=== PATIENT | male | born 2000 | race Asian ===

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

== ENCOUNTER 2018-01-12 20:48 | Emergency (ER) | payer OTHER ==
[2018-01-12 21:27] VITALS: TEMP 98.4
--- NOTE | 2018-01-12 21:40 | EDPHY ---
H & P Stated Complaint: cough fever sore throat since wednesday Time Seen by Provider: 01/12/18 21:30 HPI/ROS: CHIEF COMPLAINT: URI symptoms x4 days HISTORY OF PRESENT ILLNESS: 17-year-old immunocompetent male complaining of 4 days of nasal congestion, sore throat, nonproductive cough, myalgias. Influenza vaccination is up-to-date. No change in voice. No chest pain. No abdominal pain. No nausea or vomiting. No fever or chills. REVIEW OF SYSTEMS: A ten point review of systems was performed and is negative with the exception of the items mentioned in the HPI PAST MEDICAL & SURGICAL HISTORY: No pertinent medical or surgical history SOCIAL HISTORY: Nonsmoker PHYSICAL EXAM (Prior to examination, patient consented to physical exam, hands were washed and my usual and customary physical exam procedures followed) 1) GENERAL: Well-developed, well-nourished, alert and oriented. Appears to be in no acute distress. 2) HEAD: Normocephalic, atraumatic 3) HEENT: Pupils equal, round, reactive to light bilaterally. Sclera anicteric. Nasopharynx, oropharynx, clear, no lesions. No tonsillar enlargement or exudate. No hot potato voice. Ears bilaterally with normal tympanic membranes. 4) NECK: Full range of motion, no meningeal signs. 5) LUNGS: Clear auscultation bilaterally, no wheezes, no rhonchi, no retractions. 6) HEART: Regular rate and rhythm, no murmur, no heave, no gallop. 7) ABDOMEN: No guarding, no rebound, no focal tenderness, negative McBurney's, negative Miller's, negative Rovsing's, negative peritoneal sign, 8) MUSCULOSKELETAL: Moving all extremities, no focal areas of tenderness, no obvious trauma. No peripheral edema or discoloration. 9) BACK: No CVA tenderness, no midline vertebral tenderness, no fluctuance, no step-off, no obvious trauma, no visual or palpable abnormality. 10) SKIN: No rash, no petechiae. 11) Psychiatric: Patient is oriented X 3, there is no agitation. DIFFERENTIAL DIAGNOSIS: In no particular order including but limited to influenza, meningitis, bronchitis - Personal History Current Tetanus/Diphtheria Vaccine: Unsure Current Tetanus Diphtheria and Acellular Pertussis (TDAP): Unsure - Medical/Surgical History Hx Asthma: No Hx Chronic Respiratory Disease: No Hx Diabetes: No Hx Cardiac Disease: No Hx Renal Disease: No Hx Cirrhosis: No Hx Alcoholism: No Hx HIV/AIDS: No Hx Splenectomy or Spleen Trauma: No Other PMH: eczema - Social History Smoking Status: Never smoked Constitutional: Initial Vital Signs Temperature (C) 36.9 C 01/12/18 21:22 Heart Rate 94 01/12/18 21:22 Respiratory Rate 16 01/12/18 21:22 Blood Pressure 126/80 H 01/12/18 21:22 O2 Sat (%) 95 01/12/18 21:22 O2 Delivery Mode Room Air Allergies/Adverse Reactions: No Known Allergies Allergy (Verified 10/11/17 16:44) Home Medications: Medication Instructions Recorded Hydrocortisone [Cortisone] 1 florence TP BID #30 cream..g. 10/11/17 Albuterol [Proventil Inhaler HFA 1 - 2 puffs IH Q4PRN PRN #1 mdi 01/12/18 (*)] Benzonatate [Tessalon Pearles (RX)] 200 mg PO TID PRN #15 cap 01/12/18 Medical Decision Making ED Course/Re-evaluation: Patient's symptoms are more than likely secondary to viral etiology. For these reasons, I do not feel antibiotics are currently indicated. In addition, I do not identify indication for chest x-ray as the patient's lungs are clear bilaterally, has a normal pulse ox, speaking full sentences, no signs of respiratory distress. Patient has been informed that influenza not ruled out. However given his symptoms have been occurring for 4 days, he is low risk for complications, I do not think that testing is currently indicated. The patient understands that this diagnosis is provisional and can never be 100% accurate. Usual and customary warnings were given concerning the clinical impression and all the patient's questions were answered. The patient was instructed to return to the emergency department should her symptoms worsen or return, or develop any new symptoms, otherwise to followup as directed in discharge instructions. Care of patient under supervision of secondary supervising physician Dr Strange. Departure - Departure Disposition: Home, Routine, Self-Care Clinical Impression: Upper respiratory infection Qualifiers: URI type: unspecified URI Qualified Code(s): J06.9 - Acute upper respiratory infection, unspecified Condition: Good Instructions: Upper Respiratory Infection (ED) Additional Instructions: Return to the emergency department immediately for change in breathing habits, change in voice, change in swallowing habits, change in mental status, or any other symptoms that concern you. Adult Pain & Fever Control: We recommend Acetaminophen (Tylenol) and Ibuprofen (Motrin,Advil) for pain and fever control. When fever is high or pain severe, both drugs can be used at the same time, but at different intervals. Please note the time differences. Your dose is: Acetaminophen 650mg every 4 to 6 hours Ibuprofen 600mg every 6 hours with food OR Note: do not take Acetaminophen with Hydrocodone (Vicodin, Lortab) or Oycodone (Percocet). These medications also contain Acetaminophen. No more than 3000mg of Acetaminophen should be taken in 24 hours (for an adult). Referrals: [facility],. [Clinic] - 1-2 days without fail Stand Alone Forms: School Excuse Prescriptions: Albuterol [Proventil Inhaler HFA (*)] 1 - 2 puffs IH Q4PRN PRN #1 mdi PRN Reason: Cough, Moderate Benzonatate [Tessalon Pearles (RX)] 200 mg PO TID PRN #15 cap PRN Reason: Cough, Moderate
[2018-01-12 21:50] VITALS: BP 117/72; PULSE 68; RESP 18; O2SAT 96
== END 2018-01-12 21:49 | disposition home or self-care (01) ==
DX: J06.9 Acute upper respiratory infection, unspecified (principal)

== ENCOUNTER 2018-08-25 22:02 | Emergency (ER) | payer OTHER ==
[2018-08-25] MEDS ORDERED: ONDANSETRON DISINTEGRATING 4 MG TAB PO ONE (22:20)
[2018-08-25] MEDS ORDERED: IBUPROFEN 200 MG TAB PO ONE (22:20)
--- NOTE | 2018-08-25 22:28 | EDPHY ---
H & P Stated Complaint: Dizzy & nauseous Time Seen by Provider: 08/25/18 22:11 HPI/ROS: HPI The patient presents with headache and dizziness which have been present for the last 1 hr. He says he did not sleep much at all last night and was up for most of the night. He took a nap and then awoke at about 7:00 p.m. He felt groggy and tired when he awoke. He noticed when he stood up he felt lightheaded. He then sat back down and developed an occipital throbbing headache which he thought was related to hunger. He drink some water and ate a banana, however continued to feel the headache. The headache came on slowly and he has had headaches like this before related to hunger. He notices now that he is still lightheaded when he changes position. He does not have any weakness in his arms or legs. He does not have any vomiting though feels mild nausea. REVIEW OF SYSTEMS 10 systems were reviewed and negative with the exception of the elements mentioned in the history of present illness. 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 [facility] FHx: Father with diabetes PHYSICAL General Appearance: Alert, no distress Eyes: Pupils equal and round no pallor or injection ENT, Mouth: Mucous membranes moist Respiratory: There are no retractions, lungs are clear to auscultation Cardiovascular: Regular rate and rhythm , no murmur Gastrointestinal: Abdomen is soft and non-tender, no masses, bowel sounds normal Neurological: A&O, cranial nerves 2-12 intact, 5/5 strength in upper and lower extremities which is symmetric Skin: Warm and dry, no rashes Musculoskeletal: Neck is supple non tender Extremities: symmetrical, full range of motion Psychiatric: Patient is oriented X 3, there is no agitation Source: Patient Exam Limitations: No limitations - Personal History Current Tetanus/Diphtheria Vaccine: Yes Current Tetanus Diphtheria and Acellular Pertussis (TDAP): Yes - Medical/Surgical History Hx Asthma: No Hx Chronic Respiratory Disease: No Hx Diabetes: No Hx Cardiac Disease: No Hx Renal Disease: No Hx Cirrhosis: No Hx Alcoholism: No Hx HIV/AIDS: No Hx Splenectomy or Spleen Trauma: No Other PMH: eczema - Social History Smoking Status: Never smoked Constitutional: Initial Vital Signs Temperature (C) 36.7 C 08/25/18 22:03 Heart Rate 90 08/25/18 22:03 Respiratory Rate 16 08/25/18 22:03 Blood Pressure 112/68 08/25/18 22:03 O2 Sat (%) 96 08/25/18 22:03 Allergies/Adverse Reactions: No Known Allergies Allergy (Verified 10/11/17 16:44) Home Medications: Medication Instructions Recorded Hydrocortisone [Cortisone] 1 florence TP BID #30 cream..g. 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 He says he has not had anything to eat or drink over the course of the last 1 day. He also did not sleep last night at all and took a short nap this evening. He says he has felt lightheaded like this before when he is dehydrated. On exam, vital signs are normal, he is generally well-appearing. He has no concerning features of his headache as it came on slowly and feels like prior headaches, he also has normal neurologic exam. In the emergency department, patient received p.o. Fluids, ibuprofen and Zofran with improvement in his symptoms. Differential diagnosis includes migraine headache, orthostatic hypotension, dehydration, tension type headache. - Data Points Medications Given: Discontinued Medications Ibuprofen (Motrin) 400 mg PO EDNOW ONE Stop: 08/25/18 22:21 Last Admin: 08/25/18 22:37 Dose: 400 mg Ondansetron HCl (Zofran Odt) 4 mg PO EDNOW ONE Stop: 08/25/18 22:21 Last Admin: 08/25/18 22:37 Dose: 4 mg Departure - Departure Disposition: Home, Routine, Self-Care Clinical Impression: Lightheaded Headache Qualifiers: Headache type: unspecified Headache chronicity pattern: acute headache Intractability: not intractable Qualified Code(s): R51 - Headache Condition: Good Instructions: Lightheadedness (ED) Additional Instructions: I recommend that you get at least 7-8 hours of sleep per night and make sure to eat breakfast upon awakening. You should follow up with Mary tomorrow if your symptoms continue. You should return if your worse in any way. Referrals: MARY Nguyen,. [Clinic] - As per Instructions
[2018-08-25 23:38] VITALS: BP 104/60
== END 2018-08-25 23:36 | disposition home or self-care (01) ==
DX: R42 Dizziness and giddiness (principal); R51 Headache

== ENCOUNTER 2019-04-11 22:05 | Emergency (ER) | payer OTHER | END 2019-04-11 22:35 | disposition home or self-care (01) ==